=== PATIENT | male | born 1950 | race Caucasian/White ===

== ENCOUNTER 2018-04-01 06:15 | Observation (INO) ==
[2018-04-01] MEDS ORDERED: Chlorhexidine Gluconate 2% 1 Pack (2 Cloths) TOPICAL ONE ×2 (06:44→07:30)
[2018-04-01] MEDS ORDERED: Metoprolol Tartrate 25 MG Tablet PO ONE ×2 (06:44→07:30)
[2018-04-01] MEDS ORDERED: Sodium Chlor 0.9% Inj 500 ML IV.SIG SCH (07:00)
[2018-04-01] MEDS ORDERED: Vancomycin Inj 1,000 MG in Sodium Chlor 0.9% Inj 250 ML IV.SIG SCH ×2 (07:00→07:30)
[2018-04-01] MEDS ORDERED: Artificial Tears Opth Oint 3.5 GM Tube ONE (07:16)
[2018-04-01] MEDS ORDERED: Propofol Inj 500 MG/50 ML Vial ONE (07:17)
[2018-04-01] MEDS ORDERED: HYDROmorphone PF Inj 2 MG/ML Vial ONE (07:17)
[2018-04-01] MEDS ORDERED: Sodium Chlor 0.9% Inj 500 ML IV.CONT ONE (07:30)
[2018-04-01] MEDS ORDERED: fentaNYL Citrate Inj 250 MCG/5 ML Ampul ONE (08:13)
[2018-04-01] MEDS ORDERED: Lidocaine PF 1% Inj 5 ML Syringe OTHER ONE (08:34)
[2018-04-01] MEDS ORDERED: Glycopyrrolate Inj 1 MG/5 ML Syringe IV.PUSH ONE (08:34)
[2018-04-01] MEDS ORDERED: Gelatin Size 100 Topical Foam ONE (08:43)
[2018-04-01] MEDS ORDERED: Thrombin Topical Soln 5,000 UNIT Vial TOPICAL ONE (08:43)
[2018-04-01] MEDS ORDERED: ceFAZolin 2 GM Premix Inj 2 GM/50 ML PIGGYBACK IV.SIG ONE (08:43)
[2018-04-01] MEDS: Sod Chloride 0.9% Inj 1,000 ML IV.SIG SCH (10:13)
[2018-04-01] MEDS ORDERED: Morphine Inj 4 MG/ML Vial ONE (11:49)
[2018-04-01] MEDS ORDERED: Morphine Sulfate Inj 2 MG/ML Vial IV.PUSH PRN (12:12)
[2018-04-01] MEDS ORDERED: Acetaminophen 325 MG Tablet PO PRN (12:12)
[2018-04-01] MEDS ORDERED: Bisacodyl 10 MG Supp RECTAL PRN (12:12)
--- NOTE | 2018-04-01 12:28 | XR ---
EXAM DATE: 04/01/2018 12:00 AM EDT AGE/SEX: 67 years / Male INDICATIONS: Herniated disk, hardware placement. CLINICAL DATA: This is the patient's initial encounter. Patient reports that signs and symptoms have been present for 1 day and indicates a pain score of Nonresponsive. MEDICAL/SURGICAL HISTORY: None. None. COMPARISON: No prior exams available for comparison. FINDINGS: 2 spot intraoperative fluoroscopic views of the cervical spine in the AP and crosstable lateral proje ction demonstrate anterior cervical discectomy and intervertebral fusion hardware placement at C5-6. Anterior osteophytosis and mild disc space narrowing at C6-7. CONCLUSION: Postsurgical changes are noted. Electronically signed by: Alonzo Addison MD 04/01/2018 12:26 PM EDT
[2018-04-01] MEDS: ceFAZolin Inj 2,000 MG in Sodium Chlor 0.9% Inj 80 ML IV.SIG SCH (18:08)
[2018-04-01] MEDS: Senna/Docusate Sodium 8.6/50 MG Tablet PO SCH (22:11)
[2018-04-02] MEDS: ceFAZolin Inj 2,000 MG in Sodium Chlor 0.9% Inj 80 ML IV.SIG SCH ×2 (00:39→09:44)
[2018-04-02 03:57] VITALS: RESP 18
[2018-04-02] MEDS: Sod Chloride 0.9% Inj 1,000 ML IV.SIG SCH (09:05)
[2018-04-02 09:08] VITALS: BP 134/65; PULSE 55; TEMP 98; O2SAT 99
[2018-04-02] MEDS: Senna/Docusate Sodium 8.6/50 MG Tablet PO SCH (09:43)
--- NOTE | 2018-04-07 14:33 | P.OP ---
Preoperative Diagnosis: Cervical spinal stenosis with myelopathy Postoperative Diagnosis: Cervical spinal stenosis with myelopathy Date of procedure: 04/01/18 Procedure: C5-6 anterior cervical discectomy, interbody arthodhesis using PEEK cage filled with autologous bone graft, Simplicity plate and screws Anesthesia: DARLING Surgeon: Shashi Schmitt MD Barrel Inspector Tight: sindhu Blackwell Pathology: none sent Operation and Findings: Operation and Findings: INDICATIONS FOR THE PROCEDURE Mr Whitney is a 67 year-old male who presented with intractable neck pain and clinical evidence of upper extremity radiculopathy and cervical myelopathy. He failed maximum nonsurgical management including multiple modalities of conservative treatment. A surgical decompression and arthrodhesis were indicated. The [id number] details of the procedure, indications, alternatives, risks and potential complications were fully discussed with the patient. The patient fully understood. All The questions were answered. No guarantees were given. The patient voiced requesting the procedure and provided informed consents. The patient was offered the alternative of delaying the procedure and continuing with nonsurgical management. DETAILS OF THE SURGICAL PROCEDURE After the induction of general anesthesia, endotracheal intubation was performed. A Herron catheter, bilateral WINTER hose, and sequential compression devices were placed and kept throughout the procedure. The patient was positioned supine on a Tim table with the head over a gel doughnut. All pressure points were carefully padded with egg crate mattress. The eyes were tapped shut after ointment was applied by the anesthesiologist to prevent corneal abrasion. A Mike hugger was placed over the exposed lower body to maintain control of the core body temperature. The electrophysiological team placed the needles and electrodes in their proper location and baseline SSEP's and motor evoked potentials were registered. The anterior cervical region was prepped and draped in the usual sterile fashion. A localizing x-ray was performed with a C-arm. The surgical procedure was performed in several steps as follow: SURGICAL APPROACH A skin incision was made along the middle cervical crease with a #10 blade. The dissection was carried out through the platysma exposing the sternocleidomastoid muscle. The cervical spine was approached following the fascial layers of the neck just medial to the anterior border of the sternocleidomastoid and carotid sheath by a combination of sharp and dull dissection. The omohyoid muscle was identified and carefully dissected laterally and the deep cervical fascia was carefully opened. The longus colli muscles were retracted to each side of the midline. A marker was placed at the disc space C5-6 and a cross-table lateral x-ray performed with a C-arm. SURGICAL DECOMPRESSION In order to decompress the anterior surface of the spinal cord it was necessary to preform a microsurgical resection of the disk. At this point in the procedure the operating microscope was draped in the usual sterile fashion and brought to the field. The rest of the surgical procedure was performed using microdissection technique with the exception of the closure. Under the operative microscopic, an anterior osteophytic spur was carefully removed using the leksell, and a self-retaining retractor was placed underneath the longus colli muscle. The annulus at C5-6 was incised with a #15 blade and microdiscectomy was then carefully carried out using angled curets and pituitary forceps. The patient had a posterior osteophytic/disk complex which was producing mass affect on the anterior surface of the dural sac and compression of the spinal cord. This was carefully drilled with a TPS drill and resected with a think foot plate 2mm kerrison under high magnification. The posterior longitudinal ligament was then elevated with an angled curet and incised with a 15 bladed knife. A careful ressection of the posterior longitudinal ligament was carried out using a thin footplate 2 mm Kerrison. The decompression was then carried out laterally, and a bilateral foraminotomy was performed with a 2mm thin foot Kerrison. Then the vertebral bodies above and below the disk space were undercut using a 2 mm thin foot Kerrison. The epidural space was the systematically assessed with a nerve hook in search for disk fragments. An excellent decompression was achieved in both, the dural sac and bilateral exiting nerve roots. The incision was then irrigated with a large amount of antibiotic solution INTERBODY ARTHRODHESIS In order to avoid collapse of the disk space which would result in bilateral foraminal stenosis, and to increase the chances of a successful fusion, it was necessary to place an interbody cage filled with autologous bone. At this point of the procedure, the superior and inferior endplates were then evenly decorticated with a TPS drill. The use of a drill in combination with a curette allowed me to systematically remove the cartilaginous endplates, exposing healthy bone for the interbody arthrodesis. forteen millimeters distraction pins were then placed at the vertebral bodies adjacent to the disk space, and gentle distraction was applied. The size of the interbody cage was then assessed using different size spacers, and a rasp was used to ensure no residual cartilage. A PEEK cage of the appropriate size was selected, and the interbody arthrodesis was then preformed by carefully impacting a PEEK cage filled with autologous bone graft to the disc space C5-6. An excellent position of the cage was achieved. This was was confirmed anatomically by feelling the space posterior to the implant and distance to the anterior surface of the dural sac. Radiological confirmation of the position was performed with a cross lateral xray performed with the C-arm. INTERNAL INSTRUMENTAL FIXATION Once that the interbody device was in an appropriate position, it was necessary to stabilize the spine with anterior instrumentation. Anterior instrumentation has demonstrated to increase the rate of fusion, acelerate the patient's recovery, and decrease the rate of failed interbody grafts. At this point of the procedure, the distance between the vertebral bodies was carefully measures, and a Simplicity plate was brought to the field and presented in front of the C5 and 6 vertebral bodies. Card Grinder holes were then drilled using the TPS drill, and the plate was then secured to the spine using self-drilling, self-tapping screws. Initially, the inferior right screw was inserted, followed by placement of the contra lateral upper screw. The remaining screws were sequentially placed in a contra-lateral fashion. A proper purchase was achieved with all screws and the position of the cage, plate and screws, and alignment of the spine was assessed anatomically by direct visualization, and radiologically by performing a cross lateral xray of the cervical spine with the C-arm. CLOSURE The incision was irrigated with several liters of antibiotic solution. Hemostasis was achieved with a bipolar. The screws were locked to prevent backing out. A 7 mm Tim-Wheeler drain was left in the prevertebral space and externalized through a separate stab incision. The incision was then closed in layers. 3-0 Vicryl with interrupted sutures was used to close the platysma and subcutaneous tissue. The skin was closed with 4-0 running subcuticular Vicryl and Dermabond was applied to the skin. The drain was secured with a 3-0 nylon. At the end of the procedure the sponge, needle and instrument counts were all correct. The estimated blood loss was less than 30 cc. No blood transfusion was given. No intraoperative complications occurred. The patient received prophylactic antibiotics. The patient was then extubated and transferred to the recovery room in stable condition.
--- NOTE | 2018-04-13 17:00 | P.DS ---
Date of admission: 04/01/18 12:27 Primary care physician: Sabrina Felix MD Brief History from admission: Mr Whitney is a 67 year-old male who presented with intractable neck pain and clinical evidence of upper extremity radiculopathy and cervical myelopathy. He failed maximum nonsurgical management including multiple modalities of conservative treatment. A surgical decompression and arthrodhesis were indicated. DS: Summary Hospital Course: Mr. Whitney underwent C5-6 anterior cervical discectomy, interbody arthodhesis using PEEK cage filled with autologous bone graft, Simplicity plate and screwsCervical spinal stenosis with myelopathy on 04/01/18. - Time Spent with Patient Total time spent providing and/or coordinating discharge services: - Quality: VTE Deep Vein Thrombosis/Pulmonary Embolism Present on Admission: No Results - Impressions ITS Impressions Cervical Spine X-Ray 04/01/18 00:00 CONCLUSION: Postsurgical changes are noted. Discharge Plan - Discharge Disposition Patient Disposition: W/Home Health Service - Discharge Condition Condition: Stable - Discharge Order Discharge Orders: Discharge Order (Routine); Ordered 04/02/18 Ordered By: Edie Johnson - Physicians Team Primary Care Provider: Sabrina Felix Attending Provider: Shashi Schmitt - Rxs /Orders / Referrals /Forms Prescriptions: Continue penicillin V potassium 500 mg Tablet 500 mg PO TID Ambulatory Orders / Order Sets / DME: Walker With Front Wheels (1 each) (Routine) Location: Determined by Patient Ordered By: Edie Johnson Referrals: Sabrina Felix MD [Primary Care Provider] - See Instructions Forms: Work Release/Restrictions - Discharge Instructions Patient Printed Instructions: Ovi Rodriguez (ANNABELLE)
== END 2018-04-02 10:13 | disposition home health service (06) ==
LOC: HSDI 06:15 → HSDC 06:15 → N05 16:27
PROVIDERS: ADMIT Neurological Surgery; ATTEND Neurological Surgery